=== PATIENT | female | born 1985 | race Caucasian/White ===

== ENCOUNTER 2016-11-21 08:50 | Emergency (ER) | payer SELFPAY ==
[2016-11-21 08:59] VITALS: O2SAT 99
--- NOTE | 2016-11-21 09:13 | ERPHSYRPT ---
- History of Present Illness Time Seen by Provider: 11/21/16 09:08 Source: patient Exam Limitations: no limitations Patient Subjective Stated Complaint: pt co right rib pain for couple days after coughing, pt has had cough for 3 weeks, and running fever off and on Triage Nursing Assessment: pt alert,resp easy,skin w/d has non productive cough , pt walked in Physician History: The patient is a 30-year-old female who complains of a cough for 3 weeks. One week ago she began to have right sided rib pain while coughing. 2 days ago during a coughing fit, she felt something pop in her right rib area. Now she has severe pain when she coughs in the right rib area. She smokes. Her past medical history is unremarkable. Timing/Duration: week(s) (3) Cough Quality/Degree: moderate Possible Cause: occasional episodes, smoke exposure Modifying Factors: Improves With: coughing Associated Symptoms: chest pain/soreness, cough Allergies/Adverse Reactions: No Known Drug Allergies Allergy (Verified 11/21/16 09:00) Hx Tetanus, Diphtheria Vaccination/Date Given: No Hx Influenza Vaccination/Date Given: No Hx Pneumococcal Vaccination/Date Given: No Immunizations Up to Date: Yes - Review of Systems Constitutional: No Fever, No Chills Eyes: No Symptoms Ears, Nose, & Throat: No Symptoms Respiratory: Cough Cardiac: Chest Pain Abdominal/Gastrointestinal: No Abdominal Pain, No Nausea, No Vomiting, No Diarrhea Genitourinary Symptoms: No Dysuria Musculoskeletal: No Back Pain, No Neck Pain Skin: No Rash Neurological: No Dizziness, No Focal Weakness, No Sensory Changes Psychological: No Symptoms Endocrine: No Symptoms Hematologic/Lymphatic: No Symptoms Immunological/Allergic: No Symptoms All Other Systems: Reviewed and Negative - Past Medical History Pertinent Past Medical History: No Neurological History: No Pertinent History ENT History: No Pertinent History Cardiac History: No Pertinent History Respiratory History: No Pertinent History Endocrine Medical History: No Pertinent History Musculoskeletal History: No Pertinent History GI Medical History: No Pertinent History History: No Pertinent History Psycho-Social History: Depression Female Reproductive Disorders: No Pertinent History - Past Surgical History Past Surgical History: Yes Female Surgical History: Tubal Ligation - Social History Smoking Status: Current some day smoker How long have you smoked: 13 Exposure to second hand smoke: Yes Drug Use: none Patient Lives Alone: No - Female History Hx Last Menstrual Period: 2 weeks ago Hx Now: Yes - Nursing Vital Signs Nursing Vital Signs: Initial Vital Signs Temperature 97.7 F Temperature Source Oral Pulse Rate 87 Respiratory Rate 20 Blood Pressure [Right Arm] 124/75 Pain Intensity 10 - Physical Exam General Appearance: mild distress Eye Exam: PERRL/EOMI, eyes nml inspection Ears, Nose, Throat Exam: normal ENT inspection, TMs normal, pharynx normal, moist mucous membranes Neck Exam: normal inspection, non-tender, supple, full range of motion Respiratory Exam: normal breath sounds, chest tenderness (right lateral ribs) Cardiovascular Exam: regular rate/rhythm, normal heart sounds Gastrointestinal/Abdomen Exam: soft, No tenderness Pelvic Exam: not done Rectal Exam: not done Back Exam: normal inspection, No CVA tenderness, No vertebral tenderness Extremity Exam: normal inspection, normal range of motion Neurologic Exam: alert, oriented x 3, cooperative, normal mood/affect, sensation nml, No motor deficits Skin Exam: normal color, warm, dry, No rash Lymphatic Exam: No adenopathy SpO2 Interpretation: normal SpO2: 99 Oxygen Delivery: Room Air - Radiology Exams Chest X-ray Interpretation: Teleradiologist Report, Negative (per Dr Walker) Right Ribs X-ray Interpretation: Teleradiologist Report, Negative (per Dr Walker) Ordered Tests: Active Orders 24 hr Category Date Time Status CHEST 2 VIEWS (PA AND LAT) Stat Exams 11/21/16 09:17 Completed RIBS UNILATERAL Stat Exams 11/21/16 09:16 Completed - Progress Air Movement: good Blood Culture(s) Obtained: No Antibiotics given: Yes Counseled pt/family regarding: rad results (her) - Departure Time of Disposition: 10:05 Departure Disposition: Home Clinical Impression: Bronchitis, Rib pain on right side Condition: Stable Critical Care Time: No Additional Instructions: You have bronchitis. The cough has cause you to have rib pain. Take Tessalon Perles 100 mg every 8 hours as needed for cough. Take doxycycline 100 mg twice a day for 10 days for the bronchitis. Take Tylenol and ibuprofen as needed for pain. Follow-up in 2-3 days if no improvement. Prescriptions: Benzonatate [Tessalon Perle] 100 mg PO Q8H PRN PRN #12 capsule PRN Reason: Cough Doxycycline Hyclate [Vibramycin] 1 cap PO BID #20 capsule
--- NOTE | 2016-11-21 09:44 | XRAY ---
Indication: Cough and rib pain. No known injury. Comparison: None 2 views of the right ribs obtained. No bony, articular, or soft tissue abnormalities.
--- NOTE | 2016-11-21 09:45 | XRAY ---
Indication: Cough and rib pain. No known injury. Comparison: January 06, 2016. PA/lateral chest again demonstrates normal heart, lungs, and bony thorax.
[2016-11-21 10:27] VITALS: BP 146/81; PULSE 81
== END 2016-11-21 10:27 | disposition home or self-care (01) ==
LOC: ED 08:50
DX: J40 Bronchitis, not specified as acute or chronic (principal); R07.89 Other chest pain; R05 Cough; R50.9 Fever, unspecified
CPT/HCPCS: 71020; 71100; 99283

== ENCOUNTER 2024-11-11 14:34 | Emergency (ER) | payer OTHER ==
--- NOTE | 2024-11-11 15:03 | ERPHSYRPT ---
- History of Present Illness Source: patient Exam Limitations: no limitations Physician History: About a week ago the patient was walking her dog. She had the lead wrapped around her hand around the metacarpals. The dog charged and injured her hand. She said it bruised and became swollen pretty immediately. She rest ice and elevate it and it improved. The swelling is back today and then the tenderness came on. The left hand is definitely swollen around the metacarpals. There is no obvious deformities. Palpation and movement of the fingers makes it worse nothing really makes it better except rest ice and elevation.There is no other trauma. Severity of Pain-Max: moderate Severity of Pain-Current: moderate Allergies/Adverse Reactions: No Known Drug Allergies Allergy (Verified 11/21/16 09:00) Hx Tetanus, Diphtheria Vaccination/Date Given: No Hx Influenza Vaccination/Date Given: No Hx Pneumococcal Vaccination/Date Given: No - Review of Systems Constitutional: No Symptoms Eyes: No Symptoms Neurological: No Symptoms All Other Systems: Reviewed and Negative - Past Medical History Pertinent Past Medical History: No Neurological History: No Pertinent History ENT History: No Pertinent History Cardiac History: No Pertinent History Respiratory History: No Pertinent History Endocrine Medical History: No Pertinent History Musculoskeletal History: No Pertinent History GI Medical History: No Pertinent History History: No Pertinent History Psycho-Social History: Depression Female Reproductive Disorders: No Pertinent History - Past Surgical History Past Surgical History: Yes Female Surgical History: Tubal Ligation - Female History Hx Last Menstrual Period: unsure - Social History Smoking Status: Current some day smoker How long have you smoked: 13 Exposure to second hand smoke: Yes Drug Use: none Patient Lives Alone: No - Nursing Vital Signs Nursing Vital Signs: Initial Vital Signs Temperature 97.9 F 11/11/24 14:35 Pulse Rate 86 11/11/24 14:35 Respiratory Rate 18 11/11/24 14:35 Blood Pressure 136/85 11/11/24 14:35 O2 Sat by Pulse Oximetry 99 11/11/24 14:35 Pain Scale Pain Intensity 2 - Physical Exam General Appearance: no apparent distress Eyes, Ears, Nose, Throat Exam: normal ENT inspection Shoulder Exam: normal inspection Elbow/Forearm Exam: normal inspection Wrist Exam: normal inspection Hand Exam: soft tissue tenderness (Patient has soft tissue tenderness and edema in her metacarpal area it is diffuse across the hand is worse on the dorsum. No obvious deformities.) Neuro/Tendon Exam: normal sensation Mental Status Exam: alert, oriented x 3 Skin Exam: normal color Ordered Tests: Active Orders 24 hr Category Date Time Status HAND (MINIMUM 3 VIEWS) Stat Exams 11/11/24 16:20 Taken - Progress Progress: unchanged Progress Note: On the differential was hand contusion, hand strain, hand fracture. Got an x- ray at rule out a hand fracture. I think that she just has a contusion there. It is a little bit edematous is well is discolored. I was going to have her rest ice elevate Tylenol and Advil as needed and it should improve in the next days 11/11/24 16:47 - Departure Departure Disposition: Home Clinical Impression: Hand contusion Condition: Stable Critical Care Time: No Referrals: DOCTOR,NO FAMILY [Primary Care Provider, UNKNOWN] - Follow up/PCP as directed Instructions: Minor contusion - ED discharge instructions
[2024-11-11 15:09] VITALS: RESP 18; TEMP 97.9
[2024-11-11 16:16] VITALS: O2SAT 98
[2024-11-11 16:59] VITALS: BP 142/79; PULSE 80
--- NOTE | 2024-11-11 17:04 | XRAY ---
Indication: Pain and swelling following trauma. Comparison: None 3 view left hand obtained. No bony, articular, or soft tissue abnormalities.
== END 2024-11-11 17:01 | disposition home or self-care (01) ==
LOC: ED 14:34
DX: S60.222A Contusion of left hand, initial encounter (principal); W49.09XA Other specified item causing external constriction, initial encounter; Y93.K1 Activity, walking an animal; Z72.0 Tobacco use
CPT/HCPCS: 73130; 99283